=== PATIENT | female | born 1985 | race Caucasian/White ===

== ENCOUNTER 2017-09-24 11:25 | Inpatient (IN) | payer SELFPAY ==
[2017-09-24] MEDS ORDERED: PEPCID IV SCH (13:10)
[2017-09-24] MEDS ORDERED: BICITRA PO SCH (13:10)
[2017-09-24] MEDS ORDERED: REGLAN IV SCH ×2 (13:10→15:23)
[2017-09-24 13:35] LABS: Hematocrit 40.2 % (30.3-42.9); Hemoglobin 13.6 gm/dl (10.1-14.3); Mean Corpuscular HGB Conc 34 % (30-34); Mean Corpuscular Hemoglobin 29 pg (28-32); Mean Corpuscular Volume 86 fl (79-97); Platelet Count 280 K/mm3 (140-440); Red Blood Count 4.69 M/mm3 (3.65-5.03); Red Cell Distribution Width 14.3 % (13.2-15.2)
[2017-09-24] MEDS ORDERED: LACTATED RINGERS 1,000 ML IV SCH ×2 (14:00→16:00)
[2017-09-24] MEDS ORDERED: PITOCin/NS 20 UNIT/1000ML DRIP 20 UNITS/1,000 ML BAG IV SCH ×2 (14:00→17:00)
[2017-09-24] MEDS ORDERED: ANCEF/STERILE WATER 2 GM/20 ML IV NR (14:00)
--- NOTE | 2017-09-24 14:03 | Ultrasound Report ---
ULTRASOUND OB LIMITED History: MARINA and position Technique: Transabdominal ultrasound with Doppler interrogation. Gestation: Single Position: Breech Amniotic Fluid: Decreased MARINA = 0.8 cm Heart Rate: 133 BPM
--- NOTE | 2017-09-24 14:14 | Anesthesia Consultation ---
Anesthesia Consult and Med Hx Date of service: 09/24/17 - Airway Anesthetic Teeth Evaluation: Good (upper and lower braces) ROM Head & Neck: Adequate Mental/Hyoid Distance: Adequate Mallampati Class: Class II Intubation Access Assessment: Probably Good - Pre-Operative Health Status ASA Pre-Surgery Classification: ASA2 Proposed Anesthetic Plan: Epidural, Spinal
--- NOTE | 2017-09-24 14:15 | Anesthesia Day of Surgery ---
Anesthesia Day of Surgery - Day of Surgery Patient Examined: Yes Patient H&P Reviewed: Yes Patient is NPO: Yes (had a light breakfast @8AM)
[2017-09-24 14:16] LABS: Band Neutrophils # (Manual) 0.5 K/mm3; Platelet Estimate Consistent w Auto; RBC Morphology Normal; Total Cells Counted 100
[2017-09-24] MEDS ORDERED: PHENERGAN PO PRN (14:16)
[2017-09-24] MEDS ORDERED: ZOFRAN IV PRN ×2 (14:16→16:59)
[2017-09-24] MEDS ORDERED: DILAUDID IV PRN (14:16)
[2017-09-24] MEDS ORDERED: PHENERGAN PR PRN (14:16)
[2017-09-24] MEDS ORDERED: NARCAN 0.4 MG/1 ML IV PRN ×2 (14:16→16:59)
[2017-09-24] MEDS ORDERED: Fluarix Quad 2017-2018(36 MOS+ IM ONE (14:24)
[2017-09-24] MEDS ORDERED: SODIUM CHLORIDE FLUSH SYRINGE 10 ML IV NR ×2 (15:00→17:00)
[2017-09-24] MEDS ORDERED: PEPCID IV ONE (15:23)
--- NOTE | 2017-09-24 15:30 | History and Physical Report ---
History of Present Illness Date of examination: 09/24/17 Date of admission: 09/24/17 11:25 Chief complaint: SIUP at 35 weeks with oligohydramnios and breech. History of present illness: Patient is a 32 year old , LMP 01/19/17, EDC 10/26/17 at 35 weeks and 4 days gestation who was sent from [facility] [place] for evaluation for heavy vaginal discharge. As per the patient, she had profuse discharge 5 days ago lasting a whole day but she could not tell if that was water or not. She denies any contractions or bleeding. She reports good movement. Sonogram at the clinic showed an MARINA of 1.9. On admission, tracing was CAT1. Cervix is FT/ long/post. Repeat sonogram showed an MARINA of 0.8 and breech presentation. Past History Past Medical History: no pertinent history Past Surgical History: no surgical history RATING OFFICER History: abnormal PAP smear (LGSIL) Social history: no significant social history - Obstetrical History Expected Date of Delivery: 10/26/17 Actual Gestation: 35 Week(s) 3 Day(s) : 1 Medications and Allergies Allergies Allergy/AdvReac Type Severity Reaction Status Date / Time No Known Allergies Allergy Unverified 09/24/17 11:29 Active Meds: Active Medications Cefazolin Sodium (Ancef/Sterile Water 2 Gm/20 Ml) 2 gm IV PREOP NR Stop: 09/24/17 23:00 Last Admin: 09/24/17 15:22 Dose: 2 gm Citric Acid/Sodium Citrate (Bicitra) 30 ml PO ONCE IDANIA Stop: 09/24/17 23:00 Last Admin: 09/24/17 15:22 Dose: 30 ml Diphenhydramine HCl (Benadryl) 12.5 mg IV Q2H PRN PRN Reason: Itching Famotidine (Pepcid) 20 mg IV ONCE IDANIA Stop: 09/24/17 23:00 Last Admin: 09/24/17 15:23 Dose: 20 mg Hydromorphone HCl (Dilaudid) 0.5 mg IV Q4H PRN PRN Reason: breakthrough pain > 7/10 Lactated Ringer's (Lactated Ringers) 1,000 mls @ 2,250 mls/hr IV PREOP IDANIA Stop: 09/25/17 14:27 Last Admin: 09/24/17 15:22 Dose: 2,250 mls/hr Oxytocin/Sodium Chloride (Pitocin/Ns 20 Unit/1000ml Drip) 20 units in 1,000 mls @ 0 mls/hr IV TITR IDANIA Ketorolac Tromethamine (Toradol) 30 mg IV Q6H PRN PRN Reason: Pain, Moderate (4-6) Stop: 09/29/17 14:15 Metoclopramide HCl (Reglan) 10 mg IV ONCE IDANIA Stop: 09/24/17 23:00 Last Admin: 09/24/17 15:23 Dose: 10 mg Naloxone HCl (Narcan 0.4 Mg/1 Ml) 0.2 mg IV Q2MIN PRN PRN Reason: Res Rate </= 8 or 02 SAT < 92% Ondansetron HCl (Zofran) 4 mg IV Q8H PRN PRN Reason: Nausea And Vomiting Promethazine HCl (Phenergan) 25 mg PO Q6H PRN PRN Reason: Nausea And Vomiting Promethazine HCl (Phenergan) 25 mg [place] Q6H PRN PRN Reason: Nausea And Vomiting Sodium Chloride (Sodium Chloride Flush Syringe 10 Ml) 10 ml IV PRN NR Stop: 09/25/17 14:59 - Vital Signs Vital signs: Vital Signs Pulse BP 61 114/77 09/24/17 13:03 09/24/17 13:03 Temp Pulse Resp BP Pulse Ox 61 114/77 09/24/17 13:03 09/24/17 13:03 - Physical Exam Cardiovascular: Normal S1, Normal S2 Lungs: Positive: Clear to auscultation Vulva: both: normal Cervix: Positive: other (FT/long/post.) Uterus: Positive: enlarged Adnexa: both: normal Deep Tendon Reflex Grade: Normal +2 - Obstetrical FHR: category 1 Uterine Contraction Monitor Mode: External Cervical Dilatation: 0 Cervical Effacement Percentage: 0 station: -3 Uterine Contraction Pattern: Absent Results Result Diagrams: 09/24/17 13:05 Abnormal lab results 09/24/17 Range/Units 13:05 Monocytes % (Manual) 9.0 H (0.0-7.3) % Basophils % (Manual) 2.0 H (0.0-1.8) % Basophils # (Manual) 0.2 H (0.0-0.1) K/mm3 All other labs normal. Assessment and Plan - Patient Problems (1) 35 weeks gestation of Current Visit: Yes Status: Acute (2) Oligohydramnios Current Visit: Yes Status: Acute Plan to address problem: Patient was counselled for delivery via C/section because of malpresentation. Risks, benefits of the procedure were discussed via tubular products fabricator with the patient which included but limited to the risks of infection, hemorrhage requiring blood transfusion, injury to te bowel, bladder and blood vessels. She expressed understanding, her questions were answered, she gave her informed consent. She is NPO. IV hydration. GBS prohylaxis. Anesthesia has been notified. (3) Breech presentation Current Visit: Yes Status: Acute
[2017-09-24] MEDS ORDERED: WATER FOR IRRIG STERILE IR ONE (15:48)
[2017-09-24] MEDS ORDERED: NACL 0.9% IR ONE (15:48)
[2017-09-24] MEDS ORDERED: ANCEF/STERILE WATER 2 GM/20 ML 2 GM/20 ML SYRINGE IV NR (16:00)
[2017-09-24] MEDS ORDERED: BICITRA PO ONE (16:00)
[2017-09-24] MEDS ORDERED: ZOFRAN ONE (16:25)
[2017-09-24] MEDS ORDERED: NEO SYNEPHRINE/NS Syringe(OR USE) IV ONE ×2 (16:26)
[2017-09-24] MEDS ORDERED: NACL 0.9% 1000 ML 1,000 ML ONE (16:27)
[2017-09-24] MEDS ORDERED: ASTRAMORPH PF 10MG/10ML ONE (16:29)
[2017-09-24] MEDS ORDERED: TORADOL IV PRN ×2 (16:59)
[2017-09-24] MEDS ORDERED: MORPHINE IV PRN (16:59)
[2017-09-24] MEDS ORDERED: TYLENOL PO PRN (16:59)
[2017-09-24] MEDS ORDERED: SENOKOT PO PRN (16:59)
[2017-09-24] MEDS ORDERED: TUCKS PAD TP PRN (16:59)
[2017-09-24] MEDS ORDERED: LANSINOH TP PRN (16:59)
[2017-09-24] MEDS ORDERED: MYLICON PO PRN (16:59)
--- NOTE | 2017-09-24 17:38 | Operative Report ---
Operative Report Operative Report: Preoperative diagnosis: 1. SIUP at 35 weeks and 4 days' gestation not in labor. 2. Oligohydramnios 3. IUGR 4. Breech presentation Post operative diagnosis: Same as preoperative diagnosis Procedure: Primary low-transverse section. Surgeon: Dr. Fox Spot Welder Line: none Anesthesia: Spinal EBL: 600 cc IVF: 1.5 L of RL Urine: 200 cc clear Complications: none Intraoperative findings: 1. A female infant found in a arelis breech presentation, delivered at 4:06 PM, Apgars 8 at 1 minute and 9 at 5 minutes, weight 3 lbs. 11 oz. 2. Multiple small subserosal uterine myomae. 3. Normal fallopian tubes and ovaries bilaterally. Procedure details: The risks, benefits, and alternatives of the procedure were discussed in detail with the patient was included but not limited to the risk of infection, hemorrhage requiring blood transfusion, injury to the bowel or bladder and blood vessels. The patient expressed understanding, her questions were answered , and she gave informed consent. The patient was taken to the operating room with an IV fluid infusing Ringer's lactate. In the operating room, she was placed in a sitting position and given spinal anesthesia. Then, she was placed in the dorsal supine position with a leftward tilt. Venodyne boots and Maurice catheter were placed. The abdomen was washed and she was prepared and draped in usual sterile fashion. After confirming adequate spinal anesthesia, a Pfannenstiel skin incision was made in the lower abdomen about 2 cm above the pubic symphysis using the scalpel. This incision was carried down to the underlying fascia using the Bovie. The fascia was incised and opened bilaterally curvilinear fashion. 2 straight Kocker clamps were used to grasp the upper edge of the fascia from which she underlying rectus abdominis muscle was dissected off using the Bovie. A similar procedure was done with the lower edge of the fascia to dissect the underlying rectus abdominis muscle. The muscle was from the midline by pulling. The parietal peritoneum was entered sharply using Metzenbaum scissors. A quick survey of the anatomy revealed a gravid uterus, multiple small subserosal uterine myomae, normal fallopian tubes and ovaries bilaterally. A bladder flap was created. Anthony'O retractor was placed at the incision for proper visualization. A low transverse incision was made in the lower uterine segment using the scalpel and extended bilaterally in a curvilinear fashion using bandage scissors. The amniotic sac was ruptured, there was scant amount of meconium-stained amniotic fluid. The was found in the arelis breech presentation. The was delivered from that presentation until the thorax. The anterior shoulder was delivered, the was rotated to 180 to bring the posterior shoulder to an anterior position which was delivered followed by the delivery of the head at 4:06 PM. Bulb suction of the mouth and nose was performed. The cord was clamped 2 and cut. The was handed off to the awaiting braille and talking books clerk. The infant was a female , Apgars were 8 at 1 minute and 9 at 5 minutes, weight was 3 pounds and 11 ounces. The cord was very thin and appeared to be twisted as a spiral. Cord blood was collected. The placenta was removed manually and it was complete with a three-vessel cord. The uterine cavity was cleaned of clots and debris using dry lap sponges. The uterine incision was repaired in a running locked fashion using 0 Vicryl sutures. A second layer of imbrication was placed. The gutters were cleaned of clots and debris using dry lap sponges. After confirming adequate hemostasis, the instruments were removed from the abdominal cavity. The fascia was closed in a running fashion using 0 Vicryl sutures. The skin was closed with carrillo. Sterile dressing was placed. The count of laps, needles, sponges and instruments were correct 2. The patient tolerated the procedure well. She was taken to the recovery room in a stable condition.
[2017-09-24 20:01] LABS: Basophils % (Auto) 0.3 % (0.0-1.8); Eosinophils % (Auto) 0.2 % (0.0-4.3); Hematocrit 34.3 % (30.3-42.9); Hemoglobin 11.6 gm/dl (10.1-14.3); Lymphocytes # (Auto) 1.5 K/mm3 (1.2-5.4); Lymphocytes % (Auto) 11.6 % (13.4-35.0); Mean Corpuscular HGB Conc 34 % (30-34); Mean Corpuscular Hemoglobin 29 pg (28-32); Mean Corpuscular Volume 85 fl (79-97); Monocytes # (Auto) 0.6 K/mm3 (0.0-0.8); Monocytes % (Auto) 4.8 % (0.0-7.3); Platelet Count 233 K/mm3 (140-440); Red Blood Count 4.02 M/mm3 (3.65-5.03); Red Cell Distribution Width 14.4 % (13.2-15.2)
[2017-09-24] MEDS: BENADRYL IV PRN (21:39)
[2017-09-24] MEDS: TORADOL IV PRN (23:04)
[2017-09-25] MEDS: TORADOL IV PRN (05:17)
[2017-09-25 06:43] LABS: Hematocrit 33.9 % (30.3-42.9); Hemoglobin 11.2 gm/dl (10.1-14.3)
--- NOTE | 2017-09-25 09:35 | Progress Note ---
Assessment and Plan - Patient Problems (1) S/P primary low transverse Current Visit: Yes Status: Acute Plan to address problem: Post-op day 1 - stable Continue routine PO orders Encouraged pt to continue ambulating, as tolerated Subjective - Subjective Date of service: 09/25/17 Principal diagnosis: s/p Primary LTCS Patient reports: appetite normal, voiding normally, pain well controlled, flatus , ambulating normally : doing well, in NICU Objective - Vital Signs Latest vital signs: Vital Signs Temp Pulse Resp BP BP Pulse Ox 09/25/17 04:15 98.0 F 68 18 112/74 09/25/17 00:20 98.2 F 60 20 101/69 09/24/17 21:35 98.2 F 58 L 20 108/73 09/24/17 18:30 97.7 F 62 18 109/66 99 09/24/17 17:44 61 18 104/65 98 09/24/17 17:29 64 12 112/68 99 09/24/17 17:14 63 14 104/63 99 09/24/17 16:59 57 L 12 100/64 100 09/24/17 16:54 54 L 15 103/62 100 09/24/17 16:49 97.5 F L 62 16 101/61 100 09/24/17 13:03 61 114/77 Intake and Output 09/24/17 09/25/17 09/25/17 23:59 07:59 15:59 Intake Total 600 120 Output Total 300 300 Balance 300 -180 Intake: IV 600 Oral 120 Output: Urine 300 300 Indwelling Catheter 300 Other: Total, Intake Amount 120 Total, Output Amount 300 - Exam Cardiovascular: Present: Regular rate, Normal S1, Normal S2, No murmurs Lungs: Present: Clear to auscultation, Normal air movement Abdomen: Present: normal appearance, soft Vulva: both: normal Uterus: Present: normal, firm, fundal height below umbilicus Extremities: Present: normal Deep Tendon Reflex Grade: Normal +2 Incision: Present: normal, dry, dressed - Labs Labs: Abnormal lab results 09/24/17 09/24/17 Range/Units 13:05 19:24 WBC 12.5 H (4.5-11.0) K/mm3 Lymph % (Auto) 11.6 L (13.4-35.0) % Seg Neutrophils % 83.1 H (40.0-70.0) % Monocytes % (Manual) 9.0 H (0.0-7.3) % Basophils % (Manual) 2.0 H (0.0-1.8) % Seg Neutrophils # 10.4 H (1.8-7.7) K/mm3 Basophils # (Manual) 0.2 H (0.0-0.1) K/mm3
[2017-09-25] MEDS: BENADRYL IV PRN (10:18)
[2017-09-25] MEDS: FEOSOL PO SCH (10:18)
[2017-09-25] MEDS: PRENATAL VITAMIN PO SCH (10:19)
[2017-09-25] MEDS: MOTRIN PO PRN (19:34)
[2017-09-25] MEDS: PERCOCET 5/325 PO PRN (19:34)
[2017-09-26] MEDS: MOTRIN PO PRN ×2 (08:09→16:38)
[2017-09-26] MEDS: PERCOCET 5/325 PO PRN ×2 (08:09→16:37)
[2017-09-26] MEDS: PRENATAL VITAMIN PO SCH (10:10)
[2017-09-26] MEDS: FEOSOL PO SCH (10:10)
[2017-09-26] MEDS ORDERED: Fluarix Quad 2017-2018(36 MOS+ IM ONE (12:00)
--- NOTE | 2017-09-26 12:18 | Progress Note ---
Assessment and Plan - Patient Problems (1) S/P primary low transverse Current Visit: Yes Status: Acute Plan to address problem: Post-op day 2 - stable Continue routine PO orders Encouraged pt to continue ambulating, as tolerated Discharge to home 09/27/17 Call [facility] 09/28/17 to schedule appointment for incision check/carrillo removal in 1 week Subjective - Subjective Date of service: 09/26/17 Principal diagnosis: s/p Primary LTCS Patient reports: appetite normal, voiding normally, pain well controlled, flatus , ambulating normally, no bowel movement [place]: in NICU Objective - Vital Signs Latest vital signs: Vital Signs Temp Pulse Resp BP Pulse Ox 09/26/17 08:09 18 09/26/17 07:43 97.8 F 66 16 103/71 95 09/26/17 00:00 98.6 F 77 16 114/68 09/25/17 16:45 98.2 F 70 18 111/76 97 09/25/17 12:30 99.0 F 65 18 102/65 97 Intake and Output 09/25/17 09/26/17 09/26/17 23:59 07:59 15:59 Intake Total 240 300 Balance 240 300 Intake: Intake, Free Water 240 300 Other: # Voids Void 200 1 - Exam Cardiovascular: Present: Regular rate, Normal S1, Normal S2, No murmurs Lungs: Present: Clear to auscultation, Normal air movement Abdomen: Present: normal appearance, soft, normal bowel sounds Vulva: both: normal Uterus: Present: normal, firm, fundal height below umbilicus Extremities: Present: normal Deep Tendon Reflex Grade: Normal +2 Incision: Present: normal, dry, intact
--- NOTE | 2017-09-26 12:19 | Discharge Summary ---
Providers - Providers Date of Admission: 09/24/17 11:25 Date of discharge: 09/27/17 Attending physician: HANNAH GONZALEZ MD Primary care physician: HANNAH GONZALEZ MD Hospitalization Reason for admission: IUP - (35 weeks), other (oligohydramnios, IUGR, breech presentation) Delivery: Procedure: primary low transverse Episiotomy: none Laceration: none Incision: normal, dry, intact Other procedures: none complications: none Discharge diagnosis: delivery baby: female Hospital course: Uncomplicated Condition at discharge: Stable Disposition: [id number]-01 TO HOME OR SELFCARE - Discharge Diagnoses (1) S/P primary low transverse Status: Acute Plan - Discharge Medications Prescriptions: Ibuprofen [Motrin 800 MG tab] 800 mg PO Q6H PRN #60 tablet PRN Reason: Pain, Mild (1-3) - Provider Discharge Summary Activity: routine, no sex for 6 weeks, no heavy lifting 4 weeks, no strenuous exercise Diet: routine Instructions: routine Additional instructions: [] Smoking cessation referral if applicable(refer to patient education folder for contact #) [] Refer to [facility]'s [facility] Booklet Call your doctor immediately for: * Fever > 100.5 * Heavy vaginal bleeding ( >1 pad per hour) * Severe persistent headache * Shortness of breath * Reddened, hot, painful area to leg or breast * Drainage or odor from incision. * Keep incision clean and dry at all times and follow doctor's instructions regarding bathing/showering - Follow up plan Follow up: HANNAH GONZALEZ MD [Primary Care Provider] - 7 Days (Call [facility] on 09/28/17 to schedule appointment for incision check/carrillo removal in 1 week.)
[2017-09-27] MEDS: MOTRIN PO PRN ×3 (00:09→18:21)
[2017-09-27] MEDS: FEOSOL PO SCH (11:04)
[2017-09-27] MEDS: PRENATAL VITAMIN PO SCH (11:04)
[2017-09-27 18:34] VITALS: BP 117/77
== END 2017-09-27 18:45 | disposition home or self-care (01) | DRG 765 ==
LOC: APU 11:25 → OB 18:26
PROVIDERS: ADMIT Obstetrics & Gynecology; ATTEND Obstetrics & Gynecology
PROC: 10D00Z1 Extraction of Products of Conception, Low, Open Approach (ICD-10-PCS; principal; 2017-09-24)
PROC: 3E0234Z Introduction of Serum, Toxoid and Vaccine into Muscle, Percutaneous Approach (ICD-10-PCS; 2017-09-26)
DX: O32.1XX0 Maternal care for breech presentation, not applicable or unspecified (principal); O60.14X0 Preterm labor third trimester with preterm delivery third trimester, not applicable or unspecified; O41.03X0 Oligohydramnios, third trimester, not applicable or unspecified; Z3A.35 35 weeks gestation of pregnancy; Z37.0 Single live birth; Z23 Encounter for immunization; O36.5930 Maternal care for other known or suspected poor fetal growth, third trimester, not applicable or unspecified
CPT/HCPCS: 36415; 76815; 85007; 85014; 85018; 85025; 86850; 86900; 86901; 88307; 90471; 90686; 99211; G0008; G0463; J0690; J1200; J1885; J2274; J2370; J2405; J2590; J2765; J7030; J7120